=== PATIENT | female | born 1995 | race Caucasian/White ===

== ENCOUNTER → 2016-04-30 | Outpatient (REF) | payer OTHER ==
[~2016-04-30] MED LIST: MOTRIN PO; TUMS500C PO; TYLENOL PO; VITAPRTA PO
== END ==
LOC: M LAB REF 16:53
PROVIDERS: ATTEND Specialist
DX: Z34.83 Encounter for supervision of other normal pregnancy, third trimester (principal)

== ENCOUNTER 2016-05-18 02:11 | Inpatient (IN) | payer OTHER ==
[~2016-05-18] VITALS: Ht 154.9 cm; Wt 65.0 kg
[2016-05-18 03:49] LABS: MEAN CORPUSCULAR HEMOGLOBIN 29.5 pg (27.0-33.0); MEAN CORPUSCULAR HGB CONC 33.7 g/dl (32.0-36.5); MEAN CORPUSCULAR VOLUME 87.5 fl (80.0-96.0); RED CELL DISTRIBUTION WIDTH 14.2 % (11.5-14.5); WHITE BLOOD COUNT 10.4 K/mm3 (4.0-10.0)
[2016-05-18] MEDS ORDERED: FENTANYL 2MCG/ML ROPIVACAINE 0.2% NACL 250 ML CADD As Ordered ONE (03:50)
--- NOTE | 2016-05-18 03:55 | HPE ---
DATE OF ADMISSION: 05/18/2016 REASON FOR ADMISSION: Labor. HISTORY OF PRESENT ILLNESS: Ms. Brito is a 20-year-old 2, para 1, who presents at 39 weeks 3 days estimated gestational age by a 9-week ultrasound with complaints of contractions. She reports her contractions started earlier this evening, approximately at 10 p.m. and have increased in intensity and frequency. She reports active movement. She denies any vaginal bleeding. No leakage of fluid. Her course has been unremarkable. PAST MEDICAL HISTORY: None. PAST SURGICAL HISTORY: None. PAST OBSTETRICAL HISTORY: She is 2, para 1. She is proven to 6 pounds 8 ounces. She has had uncomplicated vaginal delivery. MEDICATIONS: Include vitamins and omeprazole. ALLERGIES: She has no known drug allergies. SOCIAL HISTORY: She denies any alcohol, tobacco, or drug use during the . PHYSICAL EXAMINATION: VITAL SIGNS: Stable. She is afebrile. She has category 1 rate tracing. Contractions approximately every 5 minutes on tachometer. GENERAL APPEARANCE: Well appearing, no acute distress. LUNGS: Clear to auscultation bilaterally. CARDIOVASCULAR: Heart is regular rate and rhythm. ABDOMEN: Soft, gravid, and nontender. Estimated weight (EFW) 3300 grams. CERVICAL EXAMINATION: She was 4 cm dilated, 90% effaced, -1 station. Bulging bag of membranes. LABORATORIES: Her blood type is O positive. Antibody screen is negative. Rubella is immune. RPR is nonreactive. Hepatitis surface antigen is negative. HIV is negative. Hepatitis C is nonreactive. Chlamydia and gonorrhea screens are negative. She had a normal 1-hour Glucola. She is group B Streptococcus (GBS) negative. ASSESSMENT: 1. Ms. Brito is a 20-year-old 2, para 1 at 39 weeks 3 days estimated gestational age in active labor. 2. Reassuring status. PLAN: 1. Admit to labor and delivery. 2. CBC, RPR, type and screen. 3. Patient is a good candidate for an epidural. 4. Anticipate spontaneous vaginal delivery.
[2016-05-18] MEDS ORDERED: ePHEDrine SULFATE 25 MG/5 ML(5MG/ML) SYRINGE IV PRN (04:41)
[2016-05-18] MEDS ORDERED: LACTATED RINGER'S 1000 ML IV PRN (04:41)
[2016-05-18] MEDS ORDERED: REFRIGERATOR IV KEYS XX PRN (04:41)
[2016-05-18] MEDS ORDERED: EPIDURAL COMMENT XX SCH (04:41)
[2016-05-18] MEDS ORDERED: diphenhydrAMINE INJ 50MG/ML VIAL (J1200) IV PRN (04:41)
[2016-05-18] MEDS ORDERED: ONDANSETRON 4MG/2ML VIAL (J2405) IV PRN (04:41)
[2016-05-18] MEDS ORDERED: EPIDURAL/PCA KEYS XX PRN (04:41)
[2016-05-18] MEDS ORDERED: NALOXONE INJ 0.4 MG/1 ML VIAL (J2310) IV PRN (04:41)
[2016-05-18] MEDS ORDERED: FENTANYL/ROPIVACAINE/NACL CADD 250 ML EPIDURAL SCH (04:41)
[2016-05-18] MEDS ORDERED: OXYTOCIN 30 UNITS IN 0.9% NaCl 500ML IV BAG (J2590) As Ordered ONE (09:11)
[2016-05-18 09:26] LABS: CORD GAS ABE A -6.4; CORD GAS HCO3 A 23.6 MEQ/L; CORD GAS O2 SAT A 18.5 %; CORD GAS PCO2 A 66.7 mmHg; CORD GAS PH A 7.167 UNITS; CORD GAS PO2 A 13.9 mmHg; CORD GAS SBC A 17.5 MEQ/L; CORD GAS TCO2 A 25.7 MEQ/L
[2016-05-18 09:28] LABS: CORD GAS ABE V -2.6; CORD GAS HCO3 V 22.2 MEQ/L; CORD GAS PCO2 V 38.9 mmHg; CORD GAS PH V 7.374 UNITS; CORD GAS SBC V 21.9 MEQ/L; CORD GAS TCO2 V 23.4 MEQ/L
[2016-05-18] MEDS ORDERED: OXYTOCIN DRIP 30 UNITS in APPROPRIATE DILUENT 1 EA IV SCH (09:49)
[2016-05-18] MEDS ORDERED: ANUSOL HC CREAM 30GM TOP PRN (10:00)
[2016-05-18] MEDS ORDERED: DOCUSATE SODIUM 100 MG CAP PO PRN (10:00)
[2016-05-18] MEDS ORDERED: MOM 30ML SUSPENSION UDC PO PRN (10:00)
[2016-05-18] MEDS ORDERED: METHYLERGONOVINE MALEATE 0.2 MG TAB PO PRN (10:00)
[2016-05-18] MEDS ORDERED: RHOGAM 300 MCG (1500 IU) INJ (J2790) IM SCH (10:00)
[2016-05-18] MEDS ORDERED: DIBUCAINE 1% OINTMENT 30GM TOP PRN (10:00)
[2016-05-18] MEDS ORDERED: MEASLES,MUMPS,RUBELLA VACCINE INJ (MMR-II) (90707) SC SCH (10:00)
--- NOTE | 2016-05-18 10:53 | DN ---
DATE OF DELIVERY: 05/18/2016 TIME OF : 0917. GENDER: Female. SCORES: 7 and 9, weight was 6 pounds 11 ounces or 3024 grams. ANESTHESIA: Epidural. LACERATIONS: None. ESTIMATED BLOOD LOSS: 300 mL. CORD GAS: 7.16, 7.374, with base excesses of -6.4 and -2.6. COUNTS: 5 laparotomy sponges accounted for prior to and after delivery. Two sharps removed from the delivery field. DELIVERY NOTE: On the 05/18/2016 at 0917, Ms. Brito, a 20-year-old 2, now para 2, had a spontaneous vaginal delivery of a live born female , scores 7 and 9, weight 6 pounds 11 ounces or 3024 grams. Head was delivered occiput anterior (OA) over an intact peritoneum. There was a nuchal cord which was manually reduced, followed by delivery of left anterior shoulder, right posterior shoulder and corpus. was handed to mom with good cry. Cord was clamped times two, was cut by the father of the baby under my direction. Cord gasses and cord blood were obtained. Placenta was then drained and delivered grossly intact. A premixed bag of 500 mL of normal saline with 30 units of pitocin with was bolused, along with uterine massage. The uterus was firm. Inspection of the cervix, vagina and perineum were grossly intact and hemostatic. The mom and baby recovered in stable condition. The couple decided to name their daughter Iraida.
[2016-05-18 12:13] VITALS: BP 109/51
[2016-05-18 18:43] VITALS: BP 125/60
[2016-05-18] MEDS: IBUPROFEN 800 MG TAB PO PRN (22:43)
[2016-05-19] MEDS: IBUPROFEN 800 MG TAB PO PRN ×2 (06:08→17:17)
[2016-05-19] MEDS: ACETAMINOPHEN 500 MG TAB PO PRN ×2 (06:09→17:17)
[2016-05-19 06:11] VITALS: BP 122/67
[2016-05-19] MEDS: PRENATAL VITAMIN TAB PO SCH (07:57)
[2016-05-19 18:12] VITALS: BP 115/59
[2016-05-20 05:57] VITALS: BP 118/55
[2016-05-20] MEDS: PRENATAL VITAMIN TAB PO SCH (07:59)
[2016-05-20] MEDS: IBUPROFEN 800 MG TAB PO PRN (08:00)
[2016-05-20] MEDS ORDERED: IBUP80TA PO (12:33)
[2016-05-20] MEDS ORDERED: ACET50TA PO (12:33)
[2016-05-20] MEDS ORDERED: COLA100C PO (12:33)
[2016-05-20] MEDS ORDERED: MOM30SS PO (12:33)
== END 2016-05-20 14:10 | disposition home or self-care (01) | DRG 560 ==
LOC: M LDO 02:11 → M LDI 02:53 → M OBS 12:09
PROVIDERS: ADMIT Obstetrics & Gynecology; ATTEND Obstetrics & Gynecology
PROC: 10E0XZZ Delivery of Products of Conception, External Approach (ICD-10-PCS; principal; 2016-05-18)
DX: O69.82X0 Labor and delivery complicated by other cord entanglement, without compression, not applicable or unspecified (principal); Z37.0 Single live birth; Z3A.39 39 weeks gestation of pregnancy

== ENCOUNTER → 2017-06-28 | Outpatient (REF) | payer OTHER | LOC: M LAB REF 09:21 | DX: N39.0 Urinary tract infection, site not specified (principal) ==

== ENCOUNTER → 2017-12-20 | Outpatient (CLI) | payer OTHER ==
[2017-12-20 20:28] LABS: HCG, SERUM QUANTITATIVE < 1.0 MIU/ML
== END ==
LOC: M WUC 15:35
DX: N91.1 Secondary amenorrhea (principal)
CPT/HCPCS: 84702

== ENCOUNTER → 2018-01-20 | Outpatient (CLI) | payer OTHER ==
[2018-01-20 17:42] LABS: ALBUMIN 4.3 GM/DL (3.2-5.2); ALBUMIN/GLOBULIN RATIO 1.26 (1.00-1.93); ALKALINE PHOSPHATASE 71 U/L (45-117); ALT/SGPT 22 U/L (12-78); ANION GAP 7 MEQ/L (8-16); AST/SGOT 16 U/L (7-37); BILIRUBIN,TOTAL 0.3 MG/DL (0.2-1.0); BLOOD UREA NITROGEN 12 MG/DL (7-18); CALCIUM LEVEL 9.3 MG/DL (8.5-10.1); CARBON DIOXIDE LEVEL 28 MEQ/L (21-32); CHLORIDE LEVEL 103 MEQ/L (98-107); GLOMERULAR FILTRATION RATE > 60.0 (>60); GLUCOSE, FASTING 74 MG/DL (70-100); SODIUM LEVEL 138 MEQ/L (136-145); TOTAL PROTEIN 7.7 GM/DL (6.4-8.2)
[2018-01-20 17:44] LABS: BASO # 0.1 10^3/uL (0.0-0.2); BASO % 1.3 % (0.0-1.0); EOS # 0.3 10^3/uL (0.0-0.50); EOS % 4.6 % (0.0-3.0); HEMATOCRIT 40.7 % (36.0-47.0); HEMOGLOBIN 13.9 g/dl (12.0-15.5); IMMATURE GRANULOCYTE % 0.1 % (0-3.0); MEAN CORPUSCULAR HEMOGLOBIN 29.2 pg (27.0-33.0); MEAN CORPUSCULAR HGB CONC 34.2 g/dl (32.0-36.5); MEAN CORPUSCULAR VOLUME 85.5 fl (80.0-96.0); MONO # 0.5 10^3/uL (0.0-0.8); MONO % 7.8 % (0.0-5.0); NEUTROPHILS # 3.8 10^3/uL (1.8-7.7); NEUTROPHILS % 56.2 % (36.0-66.0); PLATELET COUNT, AUTOMATED 325 10^3/uL (150-450); RED BLOOD COUNT 4.76 10^6/uL (4.00-5.40); WHITE BLOOD COUNT 6.8 10^3/uL (4.0-10.0)
== END ==
LOC: M WUC 14:55
DX: F41.9 Anxiety disorder, unspecified (principal)
CPT/HCPCS: 84443

== ENCOUNTER → 2018-07-12 | Outpatient (REF) | payer OTHER ==
[~2018-07-12] MED LIST changes: +COLA100C5 PO; +IBUP80TA PO; +MAPA500T2 PO; +MOM30SS PO
[2018-07-12 16:00] LABS: APPEARANCE, URINE CLOUDY (CLEAR); BACTERIA, URINE AUTO 2+ (NEGATIVE); BILIRUBIN, URINE AUTO NEGATIVE (NEGATIVE); BLOOD, URINE BLOOD 1+ (NEGATIVE); COLOR, URINE AMBER (YELLOW); GLUCOSE, URINE (UA) AUTO NEGATIVE (NEGATIVE); KETONE, URINE AUTO NEGATIVE (NEGATIVE); LEUKOCYTE ESTERASE, URINE AUTO 2+ (NEGATIVE); NITRITE, URINE AUTO NEGATIVE (NEGATIVE); PROTEIN, URINE AUTO 2+ mg/dL (NEGATIVE); RBC, URINE AUTO 37 /HPF (0-3); SPECIFIC GRAVITY URINE AUTO 1.021 (1.002-1.035); SQUAMOUS EPITHELIAL CELL UR AU 12 /HPF (0-6); TRANSITIONAL EPITHELIAL AUTO 1 /HPF; TRIPLE PHOSPHATE CRYSTALS SMALL; WBC, URINE AUTO TNTC /HPF (0-3)
== END ==
LOC: M LAB REF 15:13
PROVIDERS: ATTEND Physician Assistant
DX: N39.0 Urinary tract infection, site not specified (principal)

== ENCOUNTER → 2020-01-13 | Outpatient (CLI) | payer OTHER ==
[2020-01-13 16:28] LABS: HEMATOCRIT 40.5 % (36.0-47.0); HEMOGLOBIN 13.5 g/dl (12.0-15.5); MEAN CORPUSCULAR HEMOGLOBIN 28.8 pg (27.0-33.0); MEAN CORPUSCULAR HGB CONC 33.3 g/dl (32.0-36.5); MEAN CORPUSCULAR VOLUME 86.5 fl (80.0-96.0); PLATELET COUNT, AUTOMATED 320 10^3/uL (150-450); RED BLOOD COUNT 4.68 10^6/uL (4.00-5.40)
[2020-01-13 17:07] LABS: ALBUMIN 4.3 GM/DL (3.2-5.2); ALT/SGPT 21 U/L (12-78); BILIRUBIN,TOTAL 0.3 MG/DL (0.2-1.0); BLOOD UREA NITROGEN 10 MG/DL (7-18); CALCIUM LEVEL 9.3 MG/DL (8.5-10.1); CARBON DIOXIDE LEVEL 27 MEQ/L (21-32); CHLORIDE LEVEL 107 MEQ/L (98-107); CREATININE FOR GFR 0.72 MG/DL (0.55-1.30); GLOMERULAR FILTRATION RATE > 60.0 (>60); GLUCOSE, FASTING 86 MG/DL (70-100); SODIUM LEVEL 138 MEQ/L (136-145); TOTAL PROTEIN 7.5 GM/DL (6.4-8.2)
== END ==
LOC: M WUC 12:31
PROVIDERS: ATTEND Family Medicine
DX: Z51.81 Encounter for therapeutic drug level monitoring (principal); Z79.899 Other long term (current) drug therapy

== ENCOUNTER → 2020-02-10 | Outpatient (REF) | payer OTHER ==
[2020-02-10 12:07] LABS: APPEARANCE, URINE MANUAL CLEAR (CLEAR); COLOR, URINE MANUAL ORANGE (YELLOW)
[2020-02-10 12:09] LABS: BILIRUBIN, URINE MANUAL OBSCURED (NEGATIVE); GLUCOSE, URINE (UA) MANUAL NEGATIVE (NEGATIVE); KETONE, URINE MANUAL NEGATIVE (NEGATIVE); LEUKOCYTE ESTERASE, URINE MAN OBSCURED (NEGATIVE); NITRITE, URINE MANUAL OBSCURED (NEGATIVE); PROTEIN, URINE MANUAL OBSCURED mg/dL (NEGATIVE); UROBILINOGEN, URINE MANUAL OBSCURED mg/dl (NORMAL)
[2020-02-10 12:10] LABS: BLOOD URINE MANUAL NEGATIVE (NEGATIVE)
[2020-02-10 12:18] LABS: WBC, URINE 30-40 /hpf (0-3)
[2020-02-10 12:19] LABS: SQUAMOUS EPITHELIAL CELL URINE LARGE AMOUNT /hpf (SMALL AMT)
[2020-02-10 12:20] LABS: BACTERIA, URINE LARGE AMOUNT; MUCUS, URINE LARGE AMOUNT (NEGATIVE)
[2020-02-10 12:22] LABS: HYALINE CAST, URINE NONE SEEN /lpf (0-1)
== END ==
LOC: M LAB REF 11:25
PROVIDERS: ATTEND Physician Assistant
DX: N39.0 Urinary tract infection, site not specified (principal)

== ENCOUNTER 2020-04-19 01:41 | Emergency (ER) | payer OTHER ==
[~2020-04-19] VITALS: Ht 157.5 cm; Wt 63.6 kg
[2020-04-19] MEDS ORDERED: AMPH1CAP15 PO (01:51)
[2020-04-19] MEDS ORDERED: CLINDAMYCIN 150MG CAPSULE PO ONE (03:00)
[2020-04-19] MEDS ORDERED: CLEO300C2 PO (03:36)
[2020-04-19 03:44] VITALS: BP 112/76
== END 2020-04-19 03:46 | disposition home or self-care (01) ==
LOC: M ED 01:41
DX: K04.7 Periapical abscess without sinus (principal); K08.89 Other specified disorders of teeth and supporting structures; F12.10 Cannabis abuse, uncomplicated

== ENCOUNTER → 2020-11-16 | Outpatient (REF) | payer OTHER ==
[~2020-11-16] MED LIST changes: +AMPH1CAP15 PO; +CLEO300C2 PO
[2020-11-16 17:32] LABS: HEMATOCRIT 40.7 % (36.0-47.0); MEAN CORPUSCULAR HEMOGLOBIN 29.6 pg (27.0-33.0); MEAN CORPUSCULAR HGB CONC 34.4 g/dl (32.0-36.5); PLATELET COUNT, AUTOMATED 352 10^3/uL (150-450); RED BLOOD COUNT 4.73 10^6/uL (4.00-5.40); WHITE BLOOD COUNT 7.2 10^3/uL (4.0-10.0)
[2020-11-16 18:16] LABS: HCG, SERUM QUANTITATIVE 22181 MIU/ML; HEPATITIS B SURFACE ANTIGEN NEGATIVE (NEGATIVE)
[2020-11-16 18:28] LABS: HEPATITIS C VIRUS ABY INDEX < 0.0 INDEX (<0.8); HIV 1&2 SCREEN CENTAUR NEGATIVE (NEGATIVE)
== END ==
LOC: M LAB REF 16:48
PROVIDERS: ATTEND Obstetrics & Gynecology
DX: Z32.01 Encounter for pregnancy test, result positive (principal); O36.80X0 Pregnancy with inconclusive fetal viability, not applicable or unspecified; Z3A.00 Weeks of gestation of pregnancy not specified

== ENCOUNTER → 2021-04-04 | Outpatient (REF) | payer OTHER | LOC: M LAB REF 16:27 | PROVIDERS: ATTEND Advanced Practice Midwife | DX: R31.9 Hematuria, unspecified (principal) ==

== ENCOUNTER → 2021-04-24 | Outpatient (CLI) | payer OTHER ==
[2021-04-24 12:26] LABS: HEMATOCRIT 31.3 % (36.0-47.0); HEMOGLOBIN 10.4 g/dl (12.0-15.5); MEAN CORPUSCULAR HEMOGLOBIN 29.1 pg (27.0-33.0); MEAN CORPUSCULAR HGB CONC 33.2 g/dl (32.0-36.5); MEAN CORPUSCULAR VOLUME 87.4 fl (80.0-96.0); PLATELET COUNT, AUTOMATED 288 10^3/uL (150-450); RED BLOOD COUNT 3.58 10^6/uL (4.00-5.40)
== END ==
LOC: M WUC 09:07
PROVIDERS: ATTEND Advanced Practice Midwife
DX: Z34.82 Encounter for supervision of other normal pregnancy, second trimester (principal)

== ENCOUNTER → 2021-06-21 | Outpatient (REF) | payer OTHER | LOC: M LAB REF 16:14 | PROVIDERS: ATTEND Obstetrics & Gynecology | DX: Z34.83 Encounter for supervision of other normal pregnancy, third trimester (principal) ==

== ENCOUNTER 2021-06-29 20:40 | Outpatient (CLI) | payer OTHER ==
[~2021-06-29] VITALS: Ht 157.5 cm; Wt 78.5 kg
== END 2021-06-29 21:55 | disposition home or self-care (01) ==
LOC: M LDO 20:40
PROVIDERS: ATTEND Specialist
DX: O26.893 Other specified pregnancy related conditions, third trimester (principal); R25.2 Cramp and spasm; O36.8130 Decreased fetal movements, third trimester, not applicable or unspecified; Z3A.39 39 weeks gestation of pregnancy

== ENCOUNTER 2021-07-05 21:26 | Inpatient (IN) | payer OTHER ==
[~2021-07-05] VITALS: Ht 157.5 cm; Wt 80.2 kg
[2021-07-05] MEDS ORDERED: PRENTAB9 PO (21:35)
[2021-07-05] MEDS ORDERED: HOME MED LIST COMPLETE! XX SCH (21:40)
[2021-07-05 21:41] VITALS: BP 141/75
[2021-07-05 22:02] VITALS: BP 141/79
[2021-07-05] MEDS ORDERED: OXYTOCIN DRIP 30 UNITS in IV 1 EA IV SCH (22:05)
[2021-07-05 22:14] LABS: HEMATOCRIT 31.8 % (36.0-47.0); HEMOGLOBIN 10.4 g/dl (12.0-15.5); MEAN CORPUSCULAR HGB CONC 32.7 g/dl (32.0-36.5); MEAN CORPUSCULAR VOLUME 79.5 fl (80.0-96.0); PLATELET COUNT, AUTOMATED 254 10^3/uL (150-450); WHITE BLOOD COUNT 9.6 10^3/uL (4.0-10.0)
[2021-07-05 22:59] VITALS: BP 137/65
[2021-07-05] MEDS ORDERED: PROZ20CA11 PO (23:02)
[2021-07-05 23:59] VITALS: BP 127/65
[2021-07-05] MEDS: LR 1,000 ML IV SCH (23:59)
[2021-07-06] VITALS (37 sets, daily range): BP systolic 93–151; BP diastolic 52–84
[2021-07-06] MEDS: LR 1,000 ML IV SCH ×2 (03:23→06:34)
[2021-07-06] MEDS ORDERED: FENTANYL 2MCG/ML ROPIVACAINE 0.2% IN 0.9% NACL 100ML IVBAG As Ordered ONE (03:55)
[2021-07-06] MEDS ORDERED: ONDANSETRON 4MG/2ML VIAL IV PRN (03:56)
[2021-07-06] MEDS ORDERED: REFRIGERATOR IV KEYS XX PRN (03:56)
[2021-07-06] MEDS ORDERED: EPIDURAL/PCA KEYS XX PRN (03:56)
[2021-07-06] MEDS ORDERED: FENTANYL/ROPIVACAINE/NACL BAG 100 ML EPIDURAL SCH (03:56)
[2021-07-06] MEDS ORDERED: LACTATED RINGER'S 1000 ML IV PRN (03:56)
[2021-07-06] MEDS ORDERED: NALOXONE INJ 0.4MG/1ML VIAL (J2310 PER 1MG) IV PRN (03:56)
[2021-07-06] MEDS ORDERED: EPIDURAL COMMENT XX SCH (03:56)
[2021-07-06] MEDS ORDERED: ePHEDrine SULFATE 25 MG/5 ML(5MG/ML) SYRINGE IV PRN (03:56)
[2021-07-06] MEDS ORDERED: diphenhydrAMINE 50MG/ML VIAL (J1200) IV PRN (03:56)
[2021-07-06] MEDS ORDERED: IBUPROFEN 800 MG TAB PO PRN (10:15)
[2021-07-06] MEDS ORDERED: METHYLERGONOVINE MALEATE 0.2 MG TAB PO PRN (10:15)
[2021-07-06] MEDS ORDERED: ACETAMINOPHEN 500 MG TAB PO PRN (10:15)
[2021-07-06] MEDS ORDERED: RHOGAM 300 MCG (1500 IU) INJ (J2790) IM SCH (10:15)
[2021-07-06] MEDS ORDERED: IBUPROFEN 600MG TAB PO PRN (10:15)
[2021-07-06] MEDS ORDERED: DOCUSATE SODIUM 100MG CAPSULE PO PRN (10:15)
[2021-07-06] MEDS ORDERED: MEASLES,MUMPS,RUBELLA VACCINE INJ (MMR-II) (90707) SC SCH (10:15)
[2021-07-06] MEDS ORDERED: MOM 30ML SUSPENSION UDC PO PRN (10:15)
[2021-07-06] MEDS ORDERED: ACETAMINOPHEN TAB 650MG DOSE (2X325MG) PO PRN (10:15)
[2021-07-06] MEDS ORDERED: ANUSOL HC CREAM 30GM TOP PRN (10:15)
[2021-07-06] MEDS ORDERED: DIBUCAINE 1% OINTMENT 30GM TOP PRN (10:15)
[2021-07-06] MEDS: FLUoxetine 20MG CAP PO SCH (12:43)
[2021-07-07 06:00] VITALS: BP 134/77
[2021-07-07] MEDS: FLUoxetine 20MG CAP PO SCH (08:19)
[2021-07-07] MEDS ORDERED: PRENATAL VITAMINS CHEWABLE TABLET PO SCH (09:00)
[2021-07-07 10:40] VITALS: BP 160/71
[2021-07-07 10:55] VITALS: BP 138/68
== END 2021-07-07 14:50 | disposition home or self-care (01) | DRG 560 ==
LOC: M LDO 21:26 → M LDI 21:50 → M OBS 07-06 12:00
PROVIDERS: ADMIT Specialist; ATTEND Specialist
PROC: 10E0XZZ Delivery of Products of Conception, External Approach (ICD-10-PCS; principal; 2021-07-06)
PROC: 10907ZC Drainage of Amniotic Fluid, Therapeutic from Products of Conception, Via Natural or Artificial Opening (ICD-10-PCS; 2021-07-06)
DX: O66.0 Obstructed labor due to shoulder dystocia (principal); O45.8X3 Other premature separation of placenta, third trimester; O99.344 Other mental disorders complicating childbirth; Z37.0 Single live birth; Z3A.39 39 weeks gestation of pregnancy; F41.9 Anxiety disorder, unspecified; F32.9 Major depressive disorder, single episode, unspecified

== ENCOUNTER → 2022-01-16 | Outpatient (CLI) | payer OTHER ==
[~2022-01-16] MED LIST changes: +PRENTAB9 PO; +PROZ20CA11 PO
[2022-01-16 15:50] LABS: FREE T4 1.03 NG/DL (0.76-1.46); THYROID STIMULATING HORMONE 1.34 uIU/ML (0.358-3.740)
[2022-01-16 16:19] LABS: LUTEINIZING HORMONE 6.2 mIU/mL; PROGESTERONE 13.59 NG/ML; PROLACTIN 6.4 NG/ML
[2022-01-16 16:20] LABS: ESTRADIOL 204.9 PG/ML; FOLLICLE STIMULATING HORMONE 3.8 mIU/mL
[2022-01-16 20:25] LABS: HEMOGLOBIN A1c 5.1 %
== END ==
LOC: M PLALAB 12:00
PROVIDERS: ATTEND Advanced Practice Midwife
DX: N91.2 Amenorrhea, unspecified (principal)

== ENCOUNTER → 2023-01-15 | Outpatient (CLI) | payer OTHER | LOC: M CARPUL 10:05 | PROVIDERS: ATTEND Internal Medicine Cardiovascular Disease | DX: R06.9 Unspecified abnormalities of breathing (principal) ==

== ENCOUNTER → 2023-01-15 | Outpatient (CLI) | payer OTHER ==
[2023-01-15 16:40] LABS: HEMATOCRIT 42.6 % (36.0-47.0); HEMOGLOBIN 14.3 g/dl (12.0-15.5); MEAN CORPUSCULAR HEMOGLOBIN 29.4 pg (27.0-33.0); MEAN CORPUSCULAR HGB CONC 33.6 g/dl (32.0-36.5); MEAN CORPUSCULAR VOLUME 87.5 fl (80.0-96.0); PLATELET COUNT, AUTOMATED 340 10^3/uL (150-450); RED BLOOD COUNT 4.87 10^6/uL (4.00-5.40); WHITE BLOOD COUNT 5.7 10^3/uL (4.0-10.0)
[2023-01-15 17:06] LABS: C REACTIVE PROTEIN QUANTITATIV < 0.40 MG/DL (<1.0)
[2023-01-15 17:10] LABS: ALBUMIN 4.3 G/DL (3.2-5.2); ALKALINE PHOSPHATASE 63 U/L (46-116); ALT/SGPT 21 U/L (7.0-40); AST/SGOT 14 U/L (<34); BILIRUBIN,TOTAL 0.3 MG/DL (0.3-1.2); BLOOD UREA NITROGEN 12 MG/DL (9-23); CALCIUM LEVEL 9.6 MG/DL (8.5-10.1); CARBON DIOXIDE LEVEL 28 MMOL/L (20-31); CHLORIDE LEVEL 103 MMOL/L (98-107); CHOLESTEROL LEVEL 170 MG/DL (<200); CHOLESTEROL RISK RATIO 3.53 (<5); CREATININE FOR GFR 0.73 MG/DL (0.55-1.30); GLOMERULAR FILTRATION RATE > 60.0 (>60); GLUCOSE, FASTING 78 MG/DL (60-100); HDL CHOLESTEROL 48.1 MG/DL (>40); LDL CHOLESTEROL 91.1 MG/DL (<100); MAGNESIUM LEVEL 1.6 MG/DL (1.8-2.4); NON-HDL-C 121.9 MG/DL; POTASSIUM SERUM 3.8 MMOL/L (3.5-5.1); SODIUM LEVEL 137 MMOL/L (136-145); THYROID STIMULATING HORMONE 2.644 uIU/ML (0.55-4.78); TOTAL PROTEIN 7.3 G/DL (5.7-8.2); TRIGLYCERIDES LEVEL 154 MG/DL (<150)
[2023-01-15 17:49] LABS: HEMOGLOBIN A1c 4.8 % (4.0-6.0)
[2023-01-17 14:10] LABS: LDL DIRECT 94 mg/dL (0-99); LIPOPROTEIN (a) 22.1 nmol/L (<75.0)
== END ==
LOC: M WUC 10:56
PROVIDERS: ATTEND Internal Medicine Cardiovascular Disease
DX: I48.91 Unspecified atrial fibrillation (principal); E78.2 Mixed hyperlipidemia; R00.2 Palpitations; Z82.49 Family history of ischemic heart disease and other diseases of the circulatory system; R06.09 Other forms of dyspnea; Z13.29 Encounter for screening for other suspected endocrine disorder; Z13.220 Encounter for screening for lipoid disorders

== ENCOUNTER → 2023-02-19 | Outpatient (CLI) | payer OTHER ==
[~2023-02-19] MED LIST changes: +METHACHOLINE KIT INH ONE
== END ==
LOC: M CARPUL 11:06
PROVIDERS: ATTEND Internal Medicine Cardiovascular Disease
DX: R06.09 Other forms of dyspnea (principal)
CPT/HCPCS: 94070; 95070; J7674

== ENCOUNTER → 2024-01-01 | Outpatient (CLI) | payer OTHER ==
[~2024-01-01] MED LIST changes: -METHACHOLINE KIT INH ONE
[2024-01-01 18:18] LABS: BASO # 0.1 10^3/uL (0.0-0.2); BASO % 1.2 % (0.0-1.0); EOS # 0.3 10^3/uL (0.0-0.5); EOS % 4.5 % (0.0-3.0); HEMATOCRIT 41.6 % (36.0-47.0); LYMPH # 1.8 10^3/uL (1.5-5.0); LYMPH % 29.7 % (24.0-44.0); MEAN CORPUSCULAR HGB CONC 33.7 g/dl (32.0-36.5); MEAN CORPUSCULAR VOLUME 86.3 fl (80.0-96.0); MONO # 0.5 10^3/uL (0.0-0.8); MONO % 8.6 % (2.0-8.0); NEUTROPHILS # 3.4 10^3/uL (1.5-8.5); NEUTROPHILS % 55.5 % (36.0-66.0); PLATELET COUNT, AUTOMATED 345 10^3/uL (150-450); RED BLOOD COUNT 4.82 10^6/uL (4.00-5.40)
[2024-01-01 18:24] LABS: URIC ACID 5.4 MG/DL (3.1-7.8)
[2024-01-01 18:27] LABS: BLOOD UREA NITROGEN 15 MG/DL (9-23); CALCIUM LEVEL 10.1 MG/DL (8.5-10.1); CARBON DIOXIDE LEVEL 27 MMOL/L (20-31); CHLORIDE LEVEL 107 MMOL/L (98-107); CREATININE FOR GFR 0.73 MG/DL (0.55-1.30); GLOMERULAR FILTRATION RATE > 60.0 (>60); GLUCOSE, FASTING 82 MG/DL (60-100); POTASSIUM SERUM 3.8 MMOL/L (3.5-5.1); RHEUMATOID FACTOR QUANT 4.8 IU/ML (<14); SODIUM LEVEL 140 MMOL/L (136-145)
[2024-01-01 18:36] LABS: ERYTHROCYTE SEDIMENTATION RATE 13 mm/hr (0-20)
[2024-01-05 13:02] LABS: ANA SCREEN, IFA NEGATIVE (NEGATIVE)
[2024-01-05 13:31] LABS: LYME TOTAL ANTIBODY CIA <= 0.90 Index (<=0.90)
== END ==
LOC: M WUC 11:14
PROVIDERS: ATTEND Family Medicine
DX: M25.50 Pain in unspecified joint (principal)

== ENCOUNTER → 2024-04-27 | Outpatient (REF) | payer OTHER | LOC: M LAB REF 16:16 | PROVIDERS: ATTEND Physician Assistant Medical | DX: J02.9 Acute pharyngitis, unspecified (principal) ==

== ENCOUNTER → 2024-10-21 | Outpatient (CLI) | payer OTHER ==
[~2024-10-21] MED LIST changes: -PROZ20CA11 PO; +PROZ20CA12 PO
[2024-10-21 15:32] LABS: ALT/SGPT 21 U/L (7.0-40); AST/SGOT 16 U/L (<34); CALCIUM LEVEL 9.2 MG/DL (8.5-10.1); CARBON DIOXIDE LEVEL 26 MMOL/L (20-31); CHLORIDE LEVEL 105 MMOL/L (98-107); CREATININE FOR GFR 0.77 MG/DL (0.55-1.30); GLOMERULAR FILTRATION RATE > 90.0 (>60); POTASSIUM SERUM 3.7 MMOL/L (3.5-5.1); SODIUM LEVEL 142 MMOL/L (136-145)
[2024-10-21 15:33] LABS: FREE T4 1.31 NG/DL (0.89-1.76); LUTEINIZING HORMONE 3.9 mIU/ML; PROGESTERONE 0.92 NG/ML
[2024-10-21 15:34] LABS: ESTRADIOL 62.0 PG/ML
[2024-10-21 15:40] LABS: PLATELET COUNT, AUTOMATED 332 10^3/uL (150-450)
== END ==
LOC: M PLALAB 13:31
PROVIDERS: ATTEND Specialist
DX: N92.0 Excessive and frequent menstruation with regular cycle (principal)